=== PATIENT | female | born 1960 | race Caucasian/White ===

== ENCOUNTER 2016-08-14 20:20 | Emergency (ER) | payer BC ==
[2016-08-14 20:44] VITALS: RESP 18
--- NOTE | 2016-08-14 21:03 | ED ---
General Adult HPI - General Chief complaint: Extremity Problem,Nontraumatic Stated complaint: swollen legs-sent by [employer] Time Seen by Provider: 08/14/16 20:51 Source: patient, RN notes reviewed Mode of arrival: ambulatory Limitations: no limitations - History of Present Illness Initial comments: Patient 55-year-old female who presents emergency room today with a chief complaint of bilateral ankle swelling and redness. Patient does admit that she noticed some ankle pain to the left proximal week ago. She states maybe she rolled it but she does not have any specific injury or trauma. States notes that there is increased redness has progressed. States her last today she's noticed some redness now to the right ankle as well. She states that they did feel mildly warm. She states is hurts when she ambulates. She denies any other complaints. Never had similar symptoms. States went to urgent care advised come to the emergency room to rule out possible blood clot. - Related Data Home Medications Medication Instructions Recorded Confirmed ALPRAZolam [Xanax] 0.25 mg PO DIRECTED PRN 09/22/15 08/14/16 Previous Rx's Medication Instructions Recorded Doxycycline Hyclate [Vibramycin] 100 mg PO BID #20 cap 08/14/16 Allergies Allergy/AdvReac Type Severity Reaction Status Date / Time No Known Allergies Allergy Verified 08/14/16 20:40 Review of Systems ROS Statement: Those systems with pertinent positive or pertinent negative responses have been documented in the HPI. ROS Other: All systems not noted in ROS Statement are negative. Past Medical History Additional Past Medical History / Comment(s): cardiac ablation, History of Any Multi-Drug Resistant Organisms: None Reported Additional Past Surgical History / Comment(s): COLONOSCOPY Past Anesthesia/Blood Transfusion Reactions: No Reported Reaction Past Psychological History: Anxiety Smoking Status: Never smoker Past Alcohol Use History: None Reported Past Drug Use History: None Reported - Past Family History Mother Family Medical History: Cancer Additional Family Medical History / Comment(s): STOMACH General Exam - General Exam Comments Initial Comments: General: The patient is awake and alert, in no distress, and does not appear acutely ill. Eye: Pupils are equal, round and reactive to light, extra-ocular movements are intact. No nystagmus. There is normal conjunctiva bilaterally. No signs of icterus. Ears, nose, mouth and throat: There are moist mucous membranes and no oral lesions. Neck: The neck is supple, there is no tenderness or JVD. Cardiovascular: There is a regular rate and rhythm. No murmur, rub or gallop is appreciated. Respiratory: Lungs are clear to auscultation, respirations are non-labored, breath sounds are equal. No wheezes, stridor, rales, or rhonchi. Musculoskeletal: Normal ROM. Mild tenderness to the ankles bilaterally. No specific bony tenderness. Strength 5/5. Sensation intact. Pulses equal bilaterally 2+. Neurological: A&O x 3. CN II-XII intact, There are no obvious motor or sensory deficits. Coordination appears grossly intact. Speech is normal. Skin: Mild redness to both left and right ankles. Increased redness to the left compared to the right. There is no lymphangitic streaking. Mild increased warmth. Redness starts around the malleolus wrapping Around to the back to the other malleolus. Psychiatric: Cooperative, appropriate mood & affect, normal judgment. Limitations: no limitations Course Vital Signs 08/14/16 20:41 Temperature 100.4 F H Pulse Rate 106 H Respiratory 18 Rate Blood Pressure 135/76 O2 Sat by Pulse 97 Oximetry Medical Decision Making - Medical Decision Making Patient's labs reviewed does show white count 11.5 mildly elevated sed rate and CRP. Negative uric acid. Blood culture currently pending. Case discussed with attending physician Dr. Schaefer. Rheumatoid factor with Lyme's Tighter an AMA will also be added. Patient will be started on doxycycline discharged home and advised follow-up the family doctor next 1-2 days. Patient is advised return here to the emergency room if any symptoms increase or worsen or for any other concerns. - Lab Data Result diagrams: 08/14/16 21:25 08/14/16 21:25 Lab Results 08/14/16 08/14/16 08/14/16 Range/Units 21:25 21:25 21:25 WBC 11.5 H (3.8-10.6) k/uL RBC 4.59 (3.80-5.40) m/uL Hgb 12.9 (11.4-16.0) gm/dL Hct 39.3 (34.0-46.0) % MCV 85.6 (80.0-100.0) fL MCH 28.1 (25.0-35.0) pg MCHC 32.8 (31.0-37.0) g/dL RDW 12.6 (11.5-15.5) % Plt Count 434 (150-450) k/uL Neutrophils % 79 % Lymphocytes % 14 % Monocytes % 5 % Eosinophils % 1 % Basophils % 0 % Neutrophils # 9.1 H (1.3-7.7) k/uL Lymphocytes # 1.6 (1.0-4.8) k/uL Monocytes # 0.5 (0-1.0) k/uL Eosinophils # 0.1 (0-0.7) k/uL Basophils # 0.0 (0-0.2) k/uL ESR 44 H (0-20) mm/hr Sodium 145 (137-145) mmol/L Potassium 4.2 (3.5-5.1) mmol/L Chloride 108 H (98-107) mmol/L Carbon Dioxide 25 (22-30) mmol/L Anion Gap 12 mmol/L BUN 18 H (7-17) mg/dL Creatinine 0.70 (0.52-1.04) mg/dL Est GFR (MDRD) Af Amer >60 (>60 ml/min/1.73 sqM) Est GFR (MDRD) Non-Af >60 (>60 ml/min/1.73 sqM) Glucose 138 H (74-99) mg/dL Uric Acid 4.2 (3.7-7.4) mg/dL Calcium 9.3 (8.4-10.2) mg/dL C-Reactive Protein 65.9 H (<10.0) mg/L NT-Pro-B Natriuret Pep 49 pg/mL Disposition Clinical Impression: Cellulitis Disposition: HOME SELF-CARE Condition: Good Instructions: Cellulitis (ED) Additional Instructions: Please use medication as discussed. Please follow-up with family doctor in the next 1-2 days. Please return to emergency room if the symptoms increase or worsen or for any other concerns. Prescriptions: Doxycycline Hyclate [Vibramycin] 100 mg PO BID #20 cap Time of Disposition: 22:52
[2016-08-14 21:36] LABS: Basophils % (A) 0 %; CH 28.7; CHCM 33.7; Eosinophils # (A) 0.1 k/uL (0-0.7); Eosinophils % (A) 1 %; HCT 39.3 % (34.0-46.0); HDW 2.64; HGB 12.9 gm/dL (11.4-16.0); Luc # (Auto) 0.17; Luc % (Auto) 2; Lymphocytes # (A) 1.6 k/uL (1.0-4.8); Lymphocytes % (A) 14 %; MCH 28.1 pg (25.0-35.0); MCHC 32.8 g/dL (31.0-37.0); MCV 85.6 fL (80.0-100.0); Monocytes # (A) 0.5 k/uL (0-1.0); Monocytes % (A) 5 %; Neutrophils # (A) 9.1 k/uL (1.3-7.7); Neutrophils % (A) 79 %; RBC 4.59 m/uL (3.80-5.40); RDW 12.6 % (11.5-15.5); WBC 11.5 k/uL (3.8-10.6); WBC (Perox) 11.98
[2016-08-14 21:48] LABS: Anion Gap 12 mmol/L; Blood Urea Nitrogen 18 mg/dL (7-17); C Reactive Protein 65.9 mg/L (<10.0); Calcium 9.3 mg/dL (8.4-10.2); Carbon Dioxide 25 mmol/L (22-30); Chloride 108 mmol/L (98-107); Glucose 138 mg/dL (74-99); Non-African American GFR(MDRD) >60 (>60 ml/min/1.73 sqM); Potassium 4.2 mmol/L (3.5-5.1); Sodium 145 mmol/L (137-145); Uric Acid 4.2 mg/dL (3.7-7.4)
[2016-08-14 22:22] LABS: Erythrocyte Sedimentation Rate 44 mm/hr (0-20)
--- NOTE | 2016-08-14 22:30 | US ---
EXAMINATION TYPE: US venous doppler duplex LE DATE OF EXAM: 08/14/2016 10:04 PM COMPARISON: NONE CLINICAL HISTORY: Bilateral lower leg swelling, no hx of blood clots or on any blood thinners. SIDE PERFORMED: Bilateral VESSELS IMAGED: External Iliac Vein (EIV) Common Femoral Vein Deep Femoral Vein Greater Saphenous Vein * Femoral Vein Popliteal Vein Small Saphenous Vein * Proximal Calf Veins (* superficial vessels) TECHNOLOGIST IMPRESSION: Right Leg: Appears negative for DVT Left Leg: Appears negative for DVT Bilateral lower extremity visualized deep veins showed normal flow, augmentation and compression and phasic flow without evidence of deep venous thrombosis. IMPRESSION: No definite evidence of deep venous thrombosis in the visualized bilateral lower extremi ty deep veins.
[2016-08-14 23:08] VITALS: BP 134/65; PULSE 89; TEMP 97
== END 2016-08-14 23:08 | disposition home or self-care (01) ==
LOC: EC 20:20
DX: L03.116 Cellulitis of left lower limb (principal)
CPT/HCPCS: 36415; 80048; 83880; 84550; 85025; 85652; 86038; 86140; 86431; 86618; 87040; 93970; 99284